=== PATIENT | male | born 1950 | race Caucasian/White ===

== ENCOUNTER 2022-01-24 19:57 | Emergency (ER) | payer MEDICAID, OTHER ==
[~2022-01-24] VITALS: Ht 172.7 cm; Wt 106.6 kg
--- NOTE | 2022-01-24 20:20 | NUR ---
TO ER BED 11. BIBRA 40 FROM HOME C/O GEN WEAKNESS AND BILATERAL HAND AND LEG TREMORS FOR THE PAST FEW WEEKS. SOME TREMORS NOTED. CONNECTED TO MONITOR. AWAITING MD WEISS
--- NOTE | 2022-01-24 20:34 | NUR ---
MARIE RUIZ AT BEDSIDE FOR EKG
--- NOTE | 2022-01-24 20:56 | NUR ---
ACCUCHECK 105
[2022-01-24 21:12] LABS: BASOPHILS # (AUTO) 0.1 K/uL (0.0-0.2); BASOPHILS % (AUTO) 0.9 % (0.0-2.0); EOSINOPHILS % (AUTO) 2.1 % (0.0-6.0); HEMATOCRIT 41 % (39-51); HEMOGLOBIN 13.6 g/dL (13.5-17.5); LYMPHOCYTES # (AUTO) 1.5 K/uL (0.8-4.8); LYMPHOCYTES % (AUTO) 20.8 % (20.0-44.0); MEAN CORPUSCULAR HGB CONC 33 g/dl (31.0-36.0); MEAN CORPUSCULAR VOLUME 89 fL (80-96); MONOCYTES # (AUTO) 0.9 K/uL (0.1-1.30); MONOCYTES % (AUTO) 12.7 % (2.0-12.0); NEUTROPHILS # (AUTO) 4.5 K/uL (1.8-8.9); NEUTROPHILS % (AUTO) 63.5 % (43.0-81.0); PLATELET COUNT (AUTO) 312 K/uL (150-450); RED BLOOD CELL COUNT(AUTO) 4.63 MIL/uL (4.5-6.0)
[2022-01-24 21:21] LABS: CALCIUM, SERUM 8.9 mg/dL (8.5-10.1); CARBON DIOXIDE 31 mmol/L (21-32); CHLORIDE 101 mmol/L (98-107); CREATININE 1.1 mg/dL (0.6-1.3); GLUCOSE 103 mg/dL (74-106); POTASSIUM 5.3 mmol/L (3.5-5.1); SODIUM SERUM 138 mmol/L (136-145); UREA NITROGEN, BLOOD 18 mg/dL (7-18)
[2022-01-24 21:26] LABS: ALANINE AMINOTRANSFERASE 39 U/L (12-78); ALBUMIN 3.6 g/dL (3.4-5.0); ALKALINE PHOSPHATASE 92 U/L (46-116); ASPARTATE AMINOTRANSFERASE 24 U/L (15-37); BILIRUBIN,DIRECT 0.1 mg/dL (0.0-0.2); BILIRUBIN,TOTAL 0.2 mg/dL (0.2-1.0); TOTAL PROTEIN, SERUM 7.2 g/dL (6.4-8.2)
--- NOTE | 2022-01-24 22:49 | NUR ---
Patient discharged to home in stable condition. Written and verbal after care instructions given. Patient verbalizes understanding of instruction.
[2022-01-24 22:50] VITALS: BP 139/70
== END 2022-01-24 22:51 | disposition home or self-care (01) ==
LOC: ER 20:14
DX: G25.0 Essential tremor (principal); R53.1 Weakness; I10 Essential (primary) hypertension; E11.9 Type 2 diabetes mellitus without complications; Z88.0 Allergy status to penicillin
CPT/HCPCS: 36415; 71045-TC; 80048-TC; 80076-TC; 82962-TC; 84484-TC; 85025-TC; 85730-TC

== ENCOUNTER 2022-10-29 11:39 | Emergency (ER) | payer OTHER ==
[~2022-10-29] VITALS: Ht 180.3 cm; Wt 101.6 kg
--- NOTE | 2022-10-29 11:45 | NUR ---
BIB RA39 FROM HOME C/O GENERALIZED WEAKNESS AND FREQUENT FALL THE PAST 2 DAYS, ON AND OFF FEVER, AND BODY TWITCHES. PLACED IN BED, AAOX4, BREATHING UNLABORED.
--- NOTE | 2022-10-29 12:11 | NUR ---
[employer] AT BEDSIDE
--- NOTE | 2022-10-29 12:17 | NUR ---
SWAB FOR COVID19 SENT TO LAB
[2022-10-29 12:22] LABS: BASOPHILS % (AUTO) 0.2 % (0.0-2.0); EOSINOPHILS % (AUTO) 0.2 % (0.0-6.0); HEMATOCRIT 37 % (39-51); HEMOGLOBIN 11.8 g/dL (13.5-17.5); LYMPHOCYTES # (AUTO) 0.9 K/uL (0.8-4.8); LYMPHOCYTES % (AUTO) 4.7 % (20.0-44.0); MEAN CORPUSCULAR HGB CONC 32 g/dl (31.0-36.0); MEAN CORPUSCULAR VOLUME 90 fL (80-96); MONOCYTES % (AUTO) 5.3 % (2.0-12.0); NEUTROPHILS # (AUTO) 17.7 K/uL (1.8-8.9); NEUTROPHILS % (AUTO) 89.6 % (43.0-81.0); PLATELET COUNT (AUTO) 333 K/uL (150-450); RED BLOOD CELL COUNT(AUTO) 4.12 MIL/uL (4.5-6.0); WHITE BLOOD COUNT (AUTO) 19.8 K/uL (4.3-11.0)
[2022-10-29 12:39] LABS: CALCIUM, SERUM 8.5 mg/dL (8.5-10.1); CARBON DIOXIDE 25 mmol/L (21-32); CHLORIDE 97 mmol/L (98-107); GLUCOSE 144 mg/dL (74-106); POTASSIUM 5.2 mmol/L (3.5-5.1); SODIUM SERUM 131 mmol/L (136-145); UREA NITROGEN, BLOOD 36 mg/dL (7-18)
[2022-10-29 12:51] LABS: ALANINE AMINOTRANSFERASE 22 U/L (12-78); ALBUMIN 3.3 g/dL (3.4-5.0); ALKALINE PHOSPHATASE 74 U/L (46-116); ASPARTATE AMINOTRANSFERASE 18 U/L (15-37); BILIRUBIN,DIRECT 0.2 mg/dL (0.0-0.2); BILIRUBIN,TOTAL 0.4 mg/dL (0.2-1.0)
--- NOTE | 2022-10-29 13:11 | NUR ---
AT BEDSIDE FOR EVAL.
--- NOTE | 2022-10-29 13:16 | NUR ---
CALLED [facility] AND OPENED UP A CASE FOR THE PT
--- NOTE | 2022-10-29 13:21 | NUR ---
CALLED [facility] FOR PEER TO PEER
[2022-10-29] MEDS ORDERED: LEVOFLOXACIN 750 MG /D5W 150ML PIGGYBACK IV ONE (13:30)
[2022-10-29] MEDS ORDERED: IV NS 0.9% 1,000 ML IV ONE (13:30)
[2022-10-29 14:15] VITALS: BP 113/78
--- NOTE | 2022-10-29 14:35 | NUR ---
PT ACCEPTED TO [facility]OM [address] RACHID BARAJAS REPORT [phone] TRANSPORTATION PRN [id number]
--- NOTE | 2022-10-29 15:30 | NUR ---
PATIENT PICKUP BY [facility]N STAFF AND REPORT GIVEN FOR TRANSFER TO [facility] IN A STABLE CONDITION.
== END 2022-10-29 15:30 | disposition short-term general hospital (02) ==
LOC: ER 11:41
DX: J18.9 Pneumonia, unspecified organism (principal); N17.9 Acute kidney failure, unspecified; R53.1 Weakness; Z20.822 Contact with and (suspected) exposure to COVID-19; Z88.0 Allergy status to penicillin
CPT/HCPCS: 99291; 96365; 87426; 93005; 71045; 85025; 80048; 87040 ×2; 83605; 80076; 36415; 84484; 83880; 82962; J1956; C9803